=== PATIENT | female | born 1995 | race Caucasian/White ===

== ENCOUNTER 2018-01-14 00:35 | Emergency (ER) | payer BC ==
[~2018-01-14 00:35] MED LIST: L-NO1TBD10 PO; SUMA50TA34 PO; TOPI-119 PO
[2018-01-14 00:38] VITALS: BP 157/97
--- NOTE | 2018-01-14 00:41 | ER Report ---
History and Physical Time Seen By MD: 00:41 Hx. of Stated Complaint: [facility] CLEARANCE, PT BEING UNCOOPERATIVE AND WILL NOT ANSWER QUESTIONS. HPI/ROS CHIEF COMPLAINT: [facility] clearance, alcohol intoxication HISTORY OF PRESENT ILLNESS: This is a 22 year old female. She was brought to the ER by the [place] [employer]. Found on the sidewalk passed out, intoxicated. Uncertain if she fell or the cause of her being down. She has no si gns of injuries and denies having any pain in the head, neck, back or extremities. Initially would not cooperate or talk, but eventually would answer my questions. She denies any health problems or any medications. She is not short of breath. She has no chest pain or abdominal pain. Allergies: Coded Allergies: No Known Drug Allergies (Unverified , 01/14/18) Home Meds Reported Medications Topiramate (TOPAMAX) 25 Mg Tablet, 25 MG PO QHS, #21 QHS 1ST WEEK, THEN BID 01/05/13 Sumatriptan Succinate (IMITREX) 50 Mg Tablet, 50 MG PO QHS, #21 QHS 1ST WK, THEN BID 01/05/13 T-[id number] Estr/Ethin Estra (AMETHIA 0.15-0.03-0.01 MG TAB) 1 Each Tbdspk.3mo, 1 EACH PO QDAY 01/05/13 Reviewed Nurses Notes: Yes Hx Smoking: No Exposure to Second Hand Smoke?: No Hx Substance Use Disorder: No Hx Alcohol Use: No Constitutional Vital Sign - Last 24 Hours 01/14/18 00:38 Temp 98.8 Pulse 134 Resp 16 B/P (MAP) 157/97 Pulse Ox 95 O2 Delivery Room Air Physical Exam General Appearance: Alert, initially uncooperative, but then will let me do a brief exam. Eyes: Pupils equal and round, wide pupils, reactive to light, has mild scleral injection. ENT: Normal oral mucosa. Moist mucous membranes. Tympanic membranes are normal. Neck: Neck is supple and non tender. Respiratory: Chest is non tender, lungs are clear to auscultation. Cardiac: regular rate and rhythm Gastrointestinal: Abdomen is soft and non tender, bowel sounds normal. Musculoskeletal: Extremities have full range of motion. Non tender. No tenderness with palpation over the back/spine. Skin: No rashes or lesions. DIFFERENTIAL DIAGNOSIS: After history and physical exam differential diagnosis was considered for alcohol intoxication Medical Decision Making ED Course/Re-evaluation ED Course No signs of injury. No pain on exam. Appears to be alcohol intoxication related. Cleared to be discharged to [facility]. Decision to Disposition Date: Jan 14, 2018 Decision to Disposition Time: 00:44 Depart Departure Latest Vital Signs Vital Signs Date Time Temp Pulse Resp B/P (MAP) Pulse Ox O2 Delivery O2 Flow Rate FiO2 01/14/18 00:38 98.8 134 16 157/97 95 Room Air Impression: Primary Impression: Alcohol intoxication Condition: Improved Disposition: [facility] F Patient Instructions: Alcohol Intoxication (ED) Problem Qualifiers Primary Impression: Alcohol intoxication Complication of substance-induced condition: uncomplicated Qualified Codes: F10.920 - Alcohol use, unspecified with intoxication, uncomplicated YUMIKO RIDLEY MD Jan 14, 2018 00:41
== END 2018-01-14 00:59 ==
LOC: ER 00:47
DX: F10.920 Alcohol use, unspecified with intoxication, uncomplicated (principal)
CPT/HCPCS: 99281